=== PATIENT | female | born 1935 | race Caucasian/White ===

== ENCOUNTER 2021-11-24 17:26 | Inpatient (IN) | payer MEDICARE ==
[2021-11-24 17:58] VITALS: BMI 28.5
[2021-11-24] MEDS ORDERED: diphenhydrAMINE 50 MG CAP PO PRN (19:58)
[2021-11-24] MEDS ORDERED: Bisacodyl 5 MG TAB PO PRN (20:03)
[2021-11-24] MEDS ORDERED: Senokot S 8.6-50 MG TAB PO PRN (20:03)
[2021-11-24] MEDS ORDERED: Ondansetron ODT 4 MG TAB PO PRN (20:03)
[2021-11-24] MEDS ORDERED: Guaifenesin DM 100-10/5 ML UDCUP PO PRN (20:03)
[2021-11-24] MEDS: Famotidine/PF 20 mg/2ml Vial SLOW IVP SCH (21:27)
[2021-11-24] MEDS: Sodium Chloride 0.9% 500 ML IV SCH (21:30)
[2021-11-24] MEDS: Ondansetron PF 4 MG/2 ML Vial IVP PRN (21:38)
[2021-11-24] MEDS: Famotidine 20 MG TAB PO SCH (21:40)
[2021-11-24] MEDS: Heparin 5,000 UNITS/ML VIAL SC SCH (22:06)
[2021-11-24] MEDS: traZODone HCl 50 MG TAB PO SCH ×2 (22:06→22:08)
[2021-11-24] MEDS: HYDROcodone/Acetaminophen 5/325 mg Tablet PO PRN (22:06)
[2021-11-24] MEDS: Lisinopril 20 MG TAB PO SCH (22:07)
[2021-11-24] MEDS: Methocarbamol 500 MG TAB PO SCH (22:08)
[2021-11-24] MEDS: Melatonin 3 MG TAB PO SCH (22:08)
[2021-11-24] MEDS: Potassium Chloride 10 MEQ TAB PO SCH (22:09)
[2021-11-25] MEDS: Sodium Chloride 0.9% 500 ML IV SCH (03:19)
[2021-11-25] MEDS: HYDROcodone/Acetaminophen 5/325 mg Tablet PO PRN ×2 (04:01→09:47)
[2021-11-25 04:48] LABS: #Eosinphils 0.4 thou/uL (0.0-0.7); #Lymphocytes 3.1 thou/uL (1.20-3.40); #Monocytes 0.8 thou/uL (0.11-0.59); #Neutrophils 3.4 thou/uL (1.40-6.50); %Basophils 0.1 % (0.0-1.0); %Eosinophils 4.7 % (0.0-10.0); %Lymphocytes 40.5 % (21.0-51.0); %Monocytes 10.7 % (0.0-10.0); Hemoglobin 11.9 g/dL (12.0-16.0); Mean Corpuscular HGB CONC 34.3 g/dL (32.0-36.0); Mean Corpuscular Hemoglobin 32.9 pg (27.0-31.0); Mean Platelet Volume 6.2 fL (7.4-10.4); Platelet Count 320 thou/uL (130-400); RBC Distribution Width 11.7 % (11.5-14.5); Red Blood Cell (RBC) Count 3.61 mill/uL (4.20-5.40); White Blood Cell (WBC) Count 7.7 thou/uL (4.8-10.8)
[2021-11-25 04:55] LABS: Hemoglobin A1c 5.6 % (4.0-6.0)
[2021-11-25] MEDS: Levothyroxine Sodium 100 MCG TAB PO SCH (04:55)
[2021-11-25 05:17] LABS: Anion Gap 12 mmol/L (10-20); BUN (Urea Nitrogen) 11 mg/dL (9.8-20.1); Calc. Creatinine Clearance 65 mL/min (70-130); Calcium 9.4 mg/dL (7.8-10.44); Carbon Dioxide 28 mmol/L (23-31); Cardiac Risk 4.5 (Less than 4.5); Chloride 99 mmol/L (98-107); Cholesterol 189 mg/dl (< 200 Desired); Estimated GFR 80; Glucose 89 mg/dL (83-110); HDL Cholesterol 42 mg/dL (>60 Neg Risk); LDL Cholesterol, Calculated 125 mg/dL; Potassium 3.2 mmol/L (3.5-5.1); Sodium 136 mmol/L (136-145); Triglycerides 109 mg/dL (Less than 150)
[2021-11-25] MEDS ORDERED: Non-Formulary Item 1 EACH (Atenolol/Chlorthalidone [Atenolol-Chlorthalidone 50-25] 1 EACH PO SCH (09:00)
[2021-11-25] MEDS: Potassium Chloride 10 MEQ TAB PO SCH ×3 (09:37→21:16)
[2021-11-25] MEDS: Chlorthalidone 25 MG TAB PO SCH (09:37)
[2021-11-25] MEDS: Atenolol 50 MG TAB PO SCH (09:38)
[2021-11-25] MEDS: Timolol 0.5% Ophth Soln 5 ml Bottle EA EYE SCH (09:39)
[2021-11-25] MEDS: Methocarbamol 500 MG TAB PO SCH ×4 (09:39→21:17)
[2021-11-25] MEDS: Heparin 5,000 UNITS/ML VIAL SC SCH ×3 (09:42→21:18)
[2021-11-25] MEDS: Azithromycin 500 MG in Sodium Chloride 0.9% 250 ML 250 ML IVPB SCH (09:45)
[2021-11-25] MEDS: Ondansetron PF 4 MG/2 ML Vial IVP PRN ×2 (09:47→21:31)
[2021-11-25] MEDS: SUMAtriptan Succinate 6 MG/0.5 ML VIAL SC PRN ×2 (12:43→21:31)
[2021-11-25] MEDS: cefTRIAXone\\ROCEPHIN 1 GM in Sodium Chloride 0.9% 100 ML IVPB SCH (12:47)
[2021-11-25] MEDS: Lisinopril 20 MG TAB PO SCH (21:16)
[2021-11-25] MEDS: Melatonin 3 MG TAB PO SCH (21:16)
[2021-11-25] MEDS: Famotidine/PF 20 mg/2ml Vial SLOW IVP SCH (21:16)
[2021-11-25] MEDS: traZODone HCl 50 MG TAB PO SCH ×2 (21:17→21:18)
[2021-11-25] MEDS: Famotidine 20 MG TAB PO SCH (21:17)
[2021-11-26] MEDS: Levothyroxine Sodium 100 MCG TAB PO SCH (04:14)
[2021-11-26] MEDS: HYDROcodone/Acetaminophen 5/325 mg Tablet PO PRN (04:14)
[2021-11-26 04:38] LABS: #Basophils 0.1 thou/uL (0.0-0.2); #Eosinphils 0.3 thou/uL (0.0-0.7); #Lymphocytes 2.7 thou/uL (1.20-3.40); #Monocytes 0.9 thou/uL (0.11-0.59); #Neutrophils 3.2 thou/uL (1.40-6.50); %Basophils 1.3 % (0.0-1.0); %Eosinophils 3.8 % (0.0-10.0); %Neutrophils 44.9 % (42.0-75.0); Hemoglobin 12.4 g/dL (12.0-16.0); Mean Corpuscular Volume 97.4 fL (78.0-98.0); Mean Platelet Volume 6.2 fL (7.4-10.4); Platelet Count 322 thou/uL (130-400); RBC Distribution Width 11.7 % (11.5-14.5); Red Blood Cell (RBC) Count 3.64 mill/uL (4.20-5.40); White Blood Cell (WBC) Count 7.1 thou/uL (4.8-10.8)
[2021-11-26] MEDS: Potassium Chloride 10 MEQ TAB PO SCH ×3 (09:00→20:52)
[2021-11-26] MEDS: Methocarbamol 500 MG TAB PO SCH ×4 (09:00→20:53)
[2021-11-26] MEDS: Atenolol 50 MG TAB PO SCH (09:01)
[2021-11-26] MEDS: Chlorthalidone 25 MG TAB PO SCH (09:01)
[2021-11-26] MEDS: Heparin 5,000 UNITS/ML VIAL SC SCH ×3 (09:01→20:54)
[2021-11-26] MEDS: Timolol 0.5% Ophth Soln 5 ml Bottle EA EYE SCH (09:11)
[2021-11-26] MEDS: SUMAtriptan Succinate 6 MG/0.5 ML VIAL SC PRN ×2 (10:03→19:49)
[2021-11-26] MEDS: Azithromycin 500 MG in Sodium Chloride 0.9% 250 ML 250 ML IVPB SCH (10:07)
[2021-11-26] MEDS: cefTRIAXone\\ROCEPHIN 1 GM in Sodium Chloride 0.9% 100 ML IVPB SCH (15:51)
[2021-11-26] MEDS ORDERED: Ketorolac Tromethamine 30 MG/ML VIAL IVP SCH (16:15)
[2021-11-26] MEDS: Famotidine/PF 20 mg/2ml Vial SLOW IVP SCH (19:43)
[2021-11-26] MEDS: Ondansetron PF 4 MG/2 ML Vial IVP PRN (19:43)
[2021-11-26] MEDS: Famotidine 20 MG TAB PO SCH (20:21)
[2021-11-26] MEDS: Lisinopril 20 MG TAB PO SCH (20:52)
[2021-11-26] MEDS: traZODone HCl 50 MG TAB PO SCH (20:53)
[2021-11-26] MEDS: Melatonin 3 MG TAB PO SCH (20:53)
[2021-11-27] MEDS: HYDROcodone/Acetaminophen 5/325 mg Tablet PO PRN ×3 (01:53→20:49)
[2021-11-27] MEDS: Levothyroxine Sodium 100 MCG TAB PO SCH (05:51)
[2021-11-27] MEDS: Chlorthalidone 25 MG TAB PO SCH (08:52)
[2021-11-27] MEDS: Atenolol 50 MG TAB PO SCH (08:52)
[2021-11-27] MEDS: Methocarbamol 500 MG TAB PO SCH ×4 (08:53→23:37)
[2021-11-27] MEDS: Potassium Chloride 10 MEQ TAB PO SCH ×3 (08:53→20:42)
[2021-11-27] MEDS: Timolol 0.5% Ophth Soln 5 ml Bottle EA EYE SCH (08:54)
[2021-11-27] MEDS: Azithromycin 500 MG in Sodium Chloride 0.9% 250 ML 250 ML IVPB SCH (09:30)
[2021-11-27] MEDS: Heparin 5,000 UNITS/ML VIAL SC SCH ×3 (09:30→20:42)
[2021-11-27] MEDS: Ondansetron PF 4 MG/2 ML Vial IVP PRN (10:23)
[2021-11-27] MEDS: cefTRIAXone\\ROCEPHIN 1 GM in Sodium Chloride 0.9% 100 ML IVPB SCH (14:40)
[2021-11-27] MEDS: SUMAtriptan Succinate 6 MG/0.5 ML VIAL SC PRN (15:29)
[2021-11-27] MEDS: Famotidine/PF 20 mg/2ml Vial SLOW IVP SCH (20:41)
[2021-11-27] MEDS: Famotidine 20 MG TAB PO SCH (20:41)
[2021-11-27] MEDS: traZODone HCl 50 MG TAB PO SCH (20:42)
[2021-11-27] MEDS: Milk Of Magnesia 30 ML UDCUP PO PRN (20:42)
[2021-11-27] MEDS: Lisinopril 20 MG TAB PO SCH (20:42)
[2021-11-27] MEDS: Melatonin 3 MG TAB PO SCH (20:42)
[2021-11-28] MEDS: HYDROcodone/Acetaminophen 5/325 mg Tablet PO PRN ×4 (03:48→22:33)
[2021-11-28 04:23] LABS: #Eosinphils 0.3 thou/uL (0.0-0.7); #Lymphocytes 2.6 thou/uL (1.20-3.40); #Monocytes 0.6 thou/uL (0.11-0.59); #Neutrophils 2.5 thou/uL (1.40-6.50); %Basophils 0.5 % (0.0-1.0); %Eosinophils 5.2 % (0.0-10.0); %Neutrophils 41.3 % (42.0-75.0); Hemoglobin 11.5 g/dL (12.0-16.0); Mean Corpuscular HGB CONC 33.9 g/dL (32.0-36.0); Mean Corpuscular Hemoglobin 32.7 pg (27.0-31.0); Mean Corpuscular Volume 96.6 fL (78.0-98.0); Platelet Count 330 thou/uL (130-400); RBC Distribution Width 11.7 % (11.5-14.5); Red Blood Cell (RBC) Count 3.51 mill/uL (4.20-5.40)
[2021-11-28 04:45] LABS: Anion Gap 13 mmol/L (10-20); BUN (Urea Nitrogen) 11 mg/dL (9.8-20.1); Calc. Creatinine Clearance 60 mL/min (70-130); Calcium 9.6 mg/dL (7.8-10.44); Carbon Dioxide 25 mmol/L (23-31); Chloride 102 mmol/L (98-107); Estimated GFR 75; Glucose 99 mg/dL (83-110); Potassium 3.9 mmol/L (3.5-5.1); Sodium 136 mmol/L (136-145)
[2021-11-28] MEDS: Levothyroxine Sodium 100 MCG TAB PO SCH (05:30)
[2021-11-28] MEDS: Chlorthalidone 25 MG TAB PO SCH (08:50)
[2021-11-28] MEDS: Heparin 5,000 UNITS/ML VIAL SC SCH ×3 (08:50→20:21)
[2021-11-28] MEDS: Atenolol 50 MG TAB PO SCH (08:50)
[2021-11-28] MEDS: Methocarbamol 500 MG TAB PO SCH ×4 (08:51→20:18)
[2021-11-28] MEDS: Potassium Chloride 10 MEQ TAB PO SCH ×3 (08:51→20:18)
[2021-11-28] MEDS: Timolol 0.5% Ophth Soln 5 ml Bottle EA EYE SCH (08:52)
[2021-11-28] MEDS: Ondansetron PF 4 MG/2 ML Vial IVP PRN ×2 (11:00→16:59)
[2021-11-28] MEDS: cefTRIAXone\\ROCEPHIN 1 GM in Sodium Chloride 0.9% 100 ML IVPB SCH (13:24)
[2021-11-28] MEDS: hydrALAZINE 20 MG/ML VIAL SLOW IVP PRN ×2 (17:17→22:35)
[2021-11-28] MEDS: Milk Of Magnesia 30 ML UDCUP PO PRN (19:17)
[2021-11-28] MEDS: Famotidine 20 MG TAB PO SCH (20:17)
[2021-11-28] MEDS: Lisinopril 20 MG TAB PO SCH (20:18)
[2021-11-28] MEDS: Melatonin 3 MG TAB PO SCH (20:18)
[2021-11-28] MEDS: traZODone HCl 50 MG TAB PO SCH (20:18)
[2021-11-28] MEDS: Famotidine/PF 20 mg/2ml Vial SLOW IVP SCH (20:19)
[2021-11-29] MEDS: SUMAtriptan Succinate 6 MG/0.5 ML VIAL SC PRN (00:06)
[2021-11-29 00:20] LABS: Anion Gap 15 mmol/L (10-20); BUN (Urea Nitrogen) 10 mg/dL (9.8-20.1); Calc. Creatinine Clearance 55 mL/min (70-130); Calcium 10.5 mg/dL (7.8-10.44); Carbon Dioxide 27 mmol/L (23-31); Chloride 99 mmol/L (98-107); Estimated GFR 68; Glucose 125 mg/dL (83-110); Magnesium 1.8 mg/dL (1.6-2.6); Potassium 3.7 mmol/L (3.5-5.1); Sodium 137 mmol/L (136-145)
[2021-11-29 00:21] LABS: #Basophils 0.1 thou/uL (0.0-0.2); #Eosinphils 0.3 thou/uL (0.0-0.7); #Lymphocytes 2.3 thou/uL (1.20-3.40); #Monocytes 0.6 thou/uL (0.11-0.59); #Neutrophils 3.3 thou/uL (1.40-6.50); %Basophils 1.6 % (0.0-1.0); %Eosinophils 3.9 % (0.0-10.0); %Lymphocytes 35.5 % (21.0-51.0); %Monocytes 9.6 % (0.0-10.0); %Neutrophils 49.5 % (42.0-75.0); Hemoglobin 13.2 g/dL (12.0-16.0); Mean Corpuscular HGB CONC 33.7 g/dL (32.0-36.0); Mean Corpuscular Hemoglobin 32.9 pg (27.0-31.0); Mean Corpuscular Volume 97.5 fL (78.0-98.0); Mean Platelet Volume 6.1 fL (7.4-10.4); Platelet Count 383 thou/uL (130-400); RBC Distribution Width 11.8 % (11.5-14.5); Red Blood Cell (RBC) Count 4.01 mill/uL (4.20-5.40); White Blood Cell (WBC) Count 6.6 thou/uL (4.8-10.8)
[2021-11-29] MEDS: Levothyroxine Sodium 100 MCG TAB PO SCH (06:04)
[2021-11-29] MEDS: Ketorolac Tromethamine 30 MG/ML VIAL IVP PRN ×2 (06:07→11:58)
[2021-11-29] MEDS: Chlorthalidone 25 MG TAB PO SCH (08:26)
[2021-11-29] MEDS: Potassium Chloride 10 MEQ TAB PO SCH (08:26)
[2021-11-29] MEDS: Atenolol 50 MG TAB PO SCH (08:27)
[2021-11-29] MEDS: Methocarbamol 500 MG TAB PO SCH ×2 (08:27→11:59)
[2021-11-29] MEDS: Heparin 5,000 UNITS/ML VIAL SC SCH (08:29)
[2021-11-29] MEDS: Timolol 0.5% Ophth Soln 5 ml Bottle EA EYE SCH (08:29)
[2021-11-29] MEDS: HYDROcodone/Acetaminophen 5/325 mg Tablet PO PRN (10:14)
[2021-11-29] MEDS: Ondansetron PF 4 MG/2 ML Vial IVP PRN (11:20)
[2021-11-29 11:21] VITALS: BP 138/70; TEMP 98.2
== END 2021-11-29 12:29 | disposition home or self-care (01) | DRG 195 ==
LOC: 2NO 17:26 → OBSVTOIN 20:03
PROVIDERS: ADMIT Family Medicine; ATTEND Family Medicine
DX: J18.9 Pneumonia, unspecified organism (principal); I10 Essential (primary) hypertension; E03.9 Hypothyroidism, unspecified; J45.909 Unspecified asthma, uncomplicated; G43.909 Migraine, unspecified, not intractable, without status migrainosus; G89.29 Other chronic pain; G25.81 Restless legs syndrome; Z88.5 Allergy status to narcotic agent; Z88.2 Allergy status to sulfonamides; Z79.899 Other long term (current) drug therapy; Z90.49 Acquired absence of other specified parts of digestive tract; Z90.710 Acquired absence of both cervix and uterus; Z98.890 Other specified postprocedural states
CPT/HCPCS: 36415; 36416; 80048; 80061; 82607; 83036; 83735; 84443; 85025; 94640; J0360; J0456; J0696; J1644; J1885; J1956; J2405; J3030; J3490; J7050; J7620; S0028